=== PATIENT | male | born 1945 | race Caucasian/White ===

== ENCOUNTER 2020-08-24 05:55 | Observation (INO) ==
[2020-08-24] MEDS ORDERED: Famotidine IV 10 MG/ML 2 ml VIAL (20 mg) IV ONE (06:00)
[2020-08-24] MEDS ORDERED: Lactated Ringers 1000 ml BAG 1,000 ML IV SCH (06:00)
[2020-08-24] MEDS ORDERED: Buffered Lidocaine 1% SYRIN 1 ml INTRADERM ONE (06:00)
[2020-08-24] MEDS ORDERED: ceFAZolin 2 GM PREMIX 2 GM/50 ML BAG ONE (06:15)
[2020-08-24] MEDS ORDERED: Famotidine IV 10 MG/ML 2 ml VIAL (20 mg) ONE (06:15)
[2020-08-24] MEDS ORDERED: Phenylephrine IV 10 MG/ML 1 ml VIAL ONE (07:05)
[2020-08-24] MEDS ORDERED: Vancomycin 1,000 MG VIAL ONE (07:19)
[2020-08-24] MEDS ORDERED: Midazolam 2 mg/2 ml VIAL 1 mg/ml 2 ml VIAL (2 mg) ONE ×2 (07:21→07:28)
[2020-08-24] MEDS ORDERED: fentaNYL 100 mcg/2 ml 50 MCG/ML VIAL ONE (07:29)
[2020-08-24] MEDS ORDERED: ROPIVACAINE 5 MG/ML 30 ML BTL (0.5%) ONE (07:29)
[2020-08-24] MEDS ORDERED: Ondansetron 4 mg VIAL 2 MG/ML 2 ml VIAL IV PRN (08:14)
[2020-08-24] MEDS ORDERED: Naloxone 0.4 mg VIAL 0.4 mg/ml 1 ml VIAL IV PRN (08:14)
[2020-08-24] MEDS ORDERED: fentaNYL 100 mcg/2 ml 50 MCG/ML VIAL IV PRN (08:14)
[2020-08-24] MEDS ORDERED: DiMENhydriNATE IV 50 mg/ml 1 ml VIAL IV PUSH PRN (08:14)
[2020-08-24] MEDS ORDERED: Acetaminophen IV 1 GM/100ML 100 ML ONE (08:39)
[2020-08-24] MEDS ORDERED: Ondansetron 4 mg VIAL 2 MG/ML 2 ml VIAL ONE (09:28)
[2020-08-24] MEDS ORDERED: Propofol 10 MG/ML 20 ML BTL ONE (10:09)
[2020-08-24] MEDS ORDERED: Morphine 2 MG/ML SYRINGE IV PRN (11:07)
[2020-08-24] MEDS ORDERED: diPHENhydraMINE 25 mg TAB PO PRN (11:07)
[2020-08-24] MEDS ORDERED: Ondansetron ODT 4 mg TAB 4 MG TAB PO PRN (11:07)
[2020-08-24] MEDS ORDERED: Magnesium Hydroxide LIQ 30 ML UDC PO PRN (11:07)
[2020-08-24] MEDS ORDERED: Lactulose 30 ml UDC PO PRN (11:07)
[2020-08-24] MEDS ORDERED: diPHENhydraMINE IV 50 MG/ML 1 ml VIAL (BENADRYL) IV PRN (11:07)
[2020-08-24] MEDS ORDERED: ceFAZolin 1 GM ADVAN 1 GM in NS 0.9% 50 ML 50 ML IVPB SCH (12:00)
[2020-08-24] MEDS: Lactated Ringers 1000 ml BAG 1,000 ML IV SCH ×2 (12:20→21:23)
[2020-08-24] MEDS: Ondansetron 4 mg VIAL 2 MG/ML 2 ml VIAL IV PRN ×2 (13:32→18:47)
[2020-08-24] MEDS: ceFAZolin 1 GM ADVAN 1 GM in NS 0.9% 50 ML 50 ML IVPB SCH ×2 (15:40→23:24)
[2020-08-24] MEDS: Magnesium Hydroxide LIQ 30 ML UDC PO SCH (21:21)
[2020-08-25 06:12] LABS: Hematocrit 38 % (42-52); Hemoglobin 13.4 g/dL (14.0-18.0); Mean Platelet Volume 7.3 fL (7.4-10.4); Platelet Count 168 10^3/uL (150-450)
[2020-08-25 06:49] LABS: Calcium 8.8 mg/dL (8.6-10.3); EGFR African American 80.7 (>60); EGFR Non-African American 66.7 (>60); Potassium 3.7 mmol/L (3.5-5.0)
[2020-08-25 07:28] VITALS: BP 122/72
[2020-08-25] MEDS: ceFAZolin 1 GM ADVAN 1 GM in NS 0.9% 50 ML 50 ML IVPB SCH (07:34)
[2020-08-25] MEDS: Magnesium Hydroxide LIQ 30 ML UDC PO SCH (07:36)
[2020-08-25] MEDS ORDERED: Vitamin THERAPEUTIC TAB PO SCH (09:00)
== END 2020-08-25 11:22 | disposition home or self-care (01) ==
LOC: AA 05:55 → INTOOBSV 05:55 → SSU 11:46
PROVIDERS: ADMIT Orthopaedic Surgery; ATTEND Orthopaedic Surgery